=== PATIENT | male | born 1980 | race Caucasian/White ===

== ENCOUNTER 2018-09-27 08:29 | Day surgery (SDC) | payer BC ==
[2018-09-27] MEDS ORDERED: fentaNYL 100 MCG/2 ML SDV ONE (08:56)
[2018-09-27] MEDS ORDERED: Propofol 200 MG/20 ML SDV ONE (08:56)
[2018-09-27] MEDS ORDERED: Midazolam 1 MG/ML 2 ML SDV ONE (08:57)
[2018-09-27] MEDS ORDERED: Sodium Chloride 0.9% 1,000 ML IV SCH (09:30)
[2018-09-27 11:51] VITALS: BP 106/60
--- NOTE | 2018-09-27 15:22 | OR ---
DATE OF PROCEDURE: 09/27/2018 SURGEON: Marc Ahmadi MD PROCEDURE: EGD. PREOPERATIVE DIAGNOSES: Epigastric pain, dysphagia. POSTOPERATIVE DIAGNOSES: Epigastric pain, dysphagia. RISKS: Risks, benefits, alternatives, and limitations including, but not limited to infection, bleeding, and perforation were explained to the patient, who wished to proceed. PROCEDURE IN DETAIL: The patient was placed in left lateral decubitus position. The EGD scope was introduced and advanced atraumatically into second part of the duodenum. The patient did have a moderate-size hiatal hernia. Within the gastric body itself, a polypoid- type lesion was identified and completely removed using hot snare. The remainder of the esophagus was normal. The patient tolerated the procedure well. Marc Ahmadi MD /[id number]
== END 2018-09-27 11:50 | disposition home or self-care (01) ==
LOC: JP.SDS 08:29
PROVIDERS: ATTEND Surgery
DX: K31.7 Polyp of stomach and duodenum (principal); K21.9 Gastro-esophageal reflux disease without esophagitis; K44.9 Diaphragmatic hernia without obstruction or gangrene; F17.200 Nicotine dependence, unspecified, uncomplicated
CPT/HCPCS: 43251; J2250; J2704; J3010; J7030

== ENCOUNTER 2019-03-21 08:27 | Day surgery (SDC) | payer BC ==
[~2019-03-21 08:27] MED LIST: Dexamethasone 4 MG/ML SDV ONE; Glycopyrrolate 0.2 MG/ML 5 ML MDV ONE; Neostigmine Methylsulfate 1 MG/ML 5 ML Syringe ONE; Ondansetron 4 MG/2 ML SDV ONE; Propofol 200 MG/20 ML SDV ONE; Rocuronium 50 MG/5 ML Vial ONE; Succinylcholine 200 MG/10 ML MDV ONE; fentaNYL 250 MCG/5 ML SDV ONE
[2019-03-21] MEDS ORDERED: Sodium Chloride 0.9% 1,000 ML IV SCH (09:00)
[2019-03-21] MEDS ORDERED: Propofol 200 MG/20 ML SDV ONE (09:15)
[2019-03-21] MEDS ORDERED: metroNIDAZOLE/Normal Saline 500 MG in Premix Bag 1 BAG IV ONE (09:30)
[2019-03-21] MEDS ORDERED: ceFAZolin 2 GM in Sodium Chloride 0.9% 50 ML IV ONE (09:30)
[2019-03-21] MEDS ORDERED: fentaNYL 250 MCG/5 ML SDV ONE (10:15)
[2019-03-21] MEDS ORDERED: Lactated Ringers 1,000 ML ONE (10:58)
[2019-03-21] MEDS ORDERED: Ketorolac 60 MG/2 ML SDV ONE (11:28)
[2019-03-21] MEDS ORDERED: Ondansetron 4 MG Tab.DIS PO PRN (11:31)
[2019-03-21] MEDS ORDERED: Bisacodyl 5 MG Tab PO PRN (11:31)
[2019-03-21] MEDS ORDERED: Benzocaine/Cetylpyridinium/Menthol Lozenge MUCMEM PRN ×2 (11:31)
[2019-03-21] MEDS ORDERED: hydrOXYzine HCl 100 MG/2 ML SDV IM PRN (11:31)
[2019-03-21] MEDS ORDERED: diphenhydrAMINE 50 MG/ML SDV IVPUSH PRN (11:31)
[2019-03-21] MEDS ORDERED: Ondansetron 4 MG/2 ML SDV IVPUSH PRN (11:31)
[2019-03-21] MEDS ORDERED: diphenhydrAMINE 25 MG Cap PO PRN (11:33)
[2019-03-21] MEDS: fentaNYL 100 MCG/2 ML SDV IVPUSH PRN ×2 (13:31→15:14)
--- NOTE | 2019-03-21 14:14 | OR ---
DATE OF PROCEDURE: 03/21/2019 SURGEON: Marc Ahmadi MD PROCEDURE: Laparoscopic repair of paraesophageal hernia with Sirena fundoplication including mesh (89206). COMPLICATIONS: None. DANCE COACH: None. ANESTHESIA: General/local. RISKS: Risks, benefits, alternatives, and limitations including, but not limited to infection, bleeding, dysphagia, leaks, injury to abdominal structures, failure, our experience with Sirena fundoplications, possibility of open surgery and other risks not listed here were explained to the patient again, and they wished to proceed. PROCEDURE IN DETAIL: The patient was placed in supine position. At 15 cm inferior and 5 cm to the left of the xiphoid, a transverse incision was made. A Veress needle was used to enter the abdomen without abnormality. A drop test was performed without abnormality. This was followed by an Optiview trocar. No evidence of enterotomy or injury were noted during entry. Three additional 5 mm ports would be placed under direct visualization, approximately 2 cm below the subcostal margin. An additional 5 mm port would be placed during this procedure due to the patient's internal fat and body habitus. The patient was noted to have a vezlc-sp-hofibjqs-size hernia. Dissection began along the right kehinde by removing the gastrohepatic membrane in the avascular plane. This kehinde dissection continued on the right side. The vagus nerves would be identified and they would be included in the wrap and protected by the Holland and not interacted with during this procedure. Dissection continued without removal of the sac. The dissection continued both superiorly and inferiorly. Attention was kept to stay in the avascular plane. Once this was felt to be fairly mobilized on the right, attention was turned to the left. The short gastrics would be transected in the standard location. This was performed by using tension and counter tension in conjunction with a Harmonic scalpel equivalent. This continued up the greater curvature of the stomach until the left kehinde was encountered. The stomach was also rolled to the medial/right side to further mobilize the stomach. At this time, a Holland drain was passed. This was then used to free the posterior space. This remained in an avascular plane and electrocautery was never used in proximity to the esophagus or stomach. There was minimal bleeding, which was controlled with either direct pressure or very minimal cautery, which was again away from the esophagus. A shoeshine maneuver was then performed and when released, the stomach did not retract back into the left side. There was noted to be approximately 3.5 cm of intraabdominal esophagus. Therefore, a Rajinder procedure was not indicated. The hernia, again, continued to be mobilized, and the sac would be removed. No abnormal bleeding was noted after this. The repair would be a posterior-type repair with a single stitch in the posterior aspect with the left and right kehinde. This was performed under direct visualization. There was some space remaining, therefore not causing any undue pressure on the esophagus. The fundoplication was then performed over a 60-Persian bougie. This was a tensionless repair and 2 stitches were placed from stomach to esophagus and then to stomach. Once these 2 stitches were placed, prior to this, the shoeshine maneuver was repeated, and careful attention was made not to torsion or disorient the stomach during this process. After this was inspected for abnormality, which none was noted, a single piece of BioMesh was tacked over the hernia itself. The abdomen was inspected for abnormality and none was noted. The air was removed. The wounds were closed with 3-0 Vicryl and 4-0 Vicryl interrupted running fashion. Dermabond was applied. The patient tolerated the procedure well. /[id number] ADDENDUM: PROCEDURE: Esophagogastroduodenoscopy. DESCRIPTION OF PROCEDURE: An EGD was also performed intraoperatively. The scope was introduced into the esophagus and advanced atraumatically into the duodenum. No evidence of duodenitis was noted. No gastritis or abnormality. On retroflexion, the gap looked good. Air was removed from the stomach. The patient tolerated the procedure well. Marc hAmadi MD /[id number]
--- NOTE | 2019-03-21 14:14 | OR ---
DATE OF PROCEDURE: 03/21/2019 SURGEON: Marc Ahmadi MD PROCEDURES: 1. Bilateral transversus abdominis plane blocks (05488). 2. Rectus sheath block, bilaterally, (30578). RISKS: Risks, benefits, alternatives, and limitations including, but not limited to infection, bleeding, and injury to abdominal structures were explained to the patient, who wished to proceed. PROCEDURE IN DETAIL: The patient was placed in supine position. The left transversus plane was identified first. This was injected with 80% of the solution, on the left side. The rectus sheath was then identified and then the posterior rectus sheath, remaining 20% of the half of the syringe, please see Pharmacy for doses, was injected under direct visualization. At no point during these left or right sides was the abdomen entered or peritoneum perforated. The right side was then performed in same manner, same fashion, same technique, in the same sequence, and using the equipment. Both, transversus abdominis plane block and rectus sheath performed on the right side. The patient tolerated the procedure well. Marc Ahmadi MD /[id number]
[2019-03-21] MEDS: Acetaminophen/HYDROcodone 325-5 MG Tab PO PRN ×2 (16:39→20:34)
[2019-03-21] MEDS: ceFAZolin 2 GM in Sodium Chloride 0.9% 50 ML IV SCH (17:19)
[2019-03-21] MEDS: Ketorolac 30 MG/ML SDV IVPUSH PRN (19:18)
[2019-03-21] MEDS: Acetaminophen/HYDROcodone 325-10 MG Tab PO PRN (20:35)
[2019-03-22] MEDS: ceFAZolin 2 GM in Sodium Chloride 0.9% 50 ML IV SCH (00:51)
[2019-03-22] MEDS: Acetaminophen/HYDROcodone 325-5 MG Tab PO PRN (00:54)
[2019-03-22] MEDS: Ketorolac 30 MG/ML SDV IVPUSH PRN (02:44)
[2019-03-22] MEDS ORDERED: Iopamidol 612 MG/ML 50 ML SDV PO ONE (04:46)
--- NOTE | 2019-03-22 05:56 | CRLCR ---
Indication: Status post Sirena Technique: Two frontal views of the abdomen obtained after administration of 50 cc Isovue-300 Comparison: None Findings/Impression:: Two views demonstrate oral contrast material within the mid to distal stomach and proximal small bowel. No evidence for extravasation of oral contrast material. Nonspecific bowel gas pattern. Osseous structures intact. Dictated by Parisa Chandler MD @ Mar 22 2019 5:53AM Signed by Dr. Parisa Chandler @ Mar 22 2019 5:53AM
[2019-03-22 07:30] VITALS: BP 136/75; PULSE 60
--- NOTE | 2019-03-22 10:18 | PN ---
DATE OF SERVICE: 03/22/2019 SUBJECTIVE: Pedro is a 38-year-old male who had a laparoscopic Sirena fundoplication by Surgeon, Marc Ahmadi MD. Vital signs have been stable overnight. Oral intake 570. Urine output recorded one void. He denies any dysphagia. REVIEW OF SYSTEMS: Remainder of review of systems negative for any pertinent positives and negatives including pain is controlled. OBJECTIVE: GENERAL: Pedro is a 38-year-old male, height 5 feet 8 inches. Weight is 260 pounds. HEART: Regular rate and rhythm. LUNGS: Clear. ABDOMEN: Dressing dry and intact. Abdominal binder is on. EXTREMITIES: Without peripheral edema. ASSESSMENT: Laparoscopic repair of paraesophageal hernia with Sirena fundoplication including mesh. Date of surgery 03/21/2019. Surgeon, Marc Ahmadi MD. PLAN: The patient discharged to home. Orders written per Dr. Marc Ahmadi MD as well as discharge summary. Fiona Quan PA-C /[id number]
[2019-03-22] MEDS: Acetaminophen/HYDROcodone 325-10 MG Tab PO PRN (11:03)
== END 2019-03-22 11:13 | disposition home or self-care (01) ==
LOC: JP.SDS 08:27 → JP.MS 11:31 → JP.SDS 03-22 11:13
PROVIDERS: ATTEND Surgery
DX: K44.9 Diaphragmatic hernia without obstruction or gangrene (principal); G89.18 Other acute postprocedural pain; K21.9 Gastro-esophageal reflux disease without esophagitis; F17.200 Nicotine dependence, unspecified, uncomplicated
CPT/HCPCS: 36415; 43282; 64488; 74240; 80048; 85027; A9270; C1713; C1776; J0171; J0330; J0690; J1100; J1885; J2405; J2704; J2710; J2795; J3010; J3490; J7030; J7050; J7120; Q9967

== ENCOUNTER 2021-08-29 20:33 | Emergency (ER) | payer BC ==
[2021-08-29 20:47] VITALS: BP 144/72; PULSE 68
== END 2021-08-29 22:53 | disposition home or self-care (01) ==
LOC: JP.ED 20:33
DX: M23.92 Unspecified internal derangement of left knee (principal); K21.9 Gastro-esophageal reflux disease without esophagitis; E66.9 Obesity, unspecified; Z68.41 Body mass index [BMI] 40.0-44.9, adult; Z86.16 Personal history of COVID-19; Z79.899 Other long term (current) drug therapy; W01.0XXA Fall on same level from slipping, tripping and stumbling without subsequent striking against object, initial encounter
CPT/HCPCS: 73562-26-LT; 73562-LT; 73610-26-LT; 73610-LT; 99282; 99283-25

== ENCOUNTER → 2024-06-21 | Day surgery (SDC) | payer BC ==
[~2024-06-21] MED LIST changes: -Dexamethasone 4 MG/ML SDV ONE; +Midazolam 1 MG/ML 2 ML SDV ONE; -Neostigmine Methylsulfate 1 MG/ML 5 ML Syringe ONE; -Ondansetron 4 MG/2 ML SDV ONE; -Rocuronium 50 MG/5 ML Vial ONE; -Succinylcholine 200 MG/10 ML MDV ONE; +fentaNYL 100 MCG/2 ML SDV ONE; -fentaNYL 250 MCG/5 ML SDV ONE
[2024-06-21] MEDS: Lactated Ringers 1,000 ML IV SCH (07:01)
[2024-06-21 08:46] VITALS: BP 111/70; PULSE 51
== END ==
LOC: JP.SDS 06:26
PROVIDERS: ATTEND Family Medicine
DX: K31.7 Polyp of stomach and duodenum (principal); K21.9 Gastro-esophageal reflux disease without esophagitis; E66.9 Obesity, unspecified; Z98.890 Other specified postprocedural states
CPT/HCPCS: 00731; 43239; J1596; J2250; J2704; J3010; J7120